=== PATIENT | female | born 1975 | race Two or more races ===

== ENCOUNTER 2020-05-21 14:36 | Outpatient (REF) | payer OTHER, SELFPAY | END 2020-05-21 14:37 | disposition home or self-care (01) | LOC: HO.LAB 14:36 | PROVIDERS: Visit Provider Internal Medicine | DX: Z20.828 Contact with and (suspected) exposure to other viral communicable diseases (principal) | CPT/HCPCS: C9803; U0003 ==

== ENCOUNTER 2023-01-26 10:02 | Outpatient (AMB) | payer OTHER, SELFPAY ==
--- NOTE | 2023-01-26 10:26 | MHC.PC.OV ---
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 Intake Note: Pt is here today as a New Patient PE Is last menstrual period known: Yes Last menstrual period: 12/17/22 Allergies No Known Allergies Allergy (Verified 01/26/23 11:03) Medication List - Last Reconciled 10/18/23 by Claudia Collazo MD aripiprazole (Abilify) 2 mg PO DAILY citalopram 40 mg PO DAILY famotidine 40 mg PO DAILY lorazepam 0.5 mg PO DAILY PRN Tobacco use date assessed: 01/26/23 Dental Screening Dental Screen Date: 01/26/23 Did you have a dental visit in the last 12 months?: No Was dental information given to patient?: Yes 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 She has depression and generalized anxiety disorder, currently in remission and stable controlled on present treatment, sees Andrews Graham. She has GERD and has morbid obesity and history of vitamin-D deficiency. 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 Complains of intermittent low back pain mainly on the left side with occasional shooting pain down the back of her left leg. Present for the last several weeks, no history of trauma or strenuous exertion. Has been taking [id number] Tylenol which affords only temporary relief [facility] Medical History (Updated 10/18/23 @ 23:40 by Claudia Collazo MD) Anxiety and depression No pertinent past medical history Morbid obesity Hyperlipidemia History of COVID-19 Family history of breast cancer Family history of colon cancer in mother Colon cancer screening GERD (gastroesophageal reflux disease) Surgical History (Updated 10/18/23 @ 23:35 by Claudia Collazo MD) No pertinent past surgical history Family History (Updated 01/26/23 @ 10:56 by Krystal Noriega CMA) Sister Mental health disorder Social History Housing: House Patient Tobacco Use Status: Former Tobacco user e-Cigarette/Vaping Use: Never Used service: No Current occupational status: employed Cognitive needs: No Hearing needs: No Vision needs: Yes Female Reproductive History Menstrual Date of last menstrual period: 12/17/22 Questionnaire PHQ-9 Over the last 2 weeks, how often have you been bothered by any of the following problems? 1. Little interest or pleasure in doing things: not at all 2. Feeling down, depressed, or hopeless: several days 3. Trouble falling or staying asleep, or sleeping too much: not at all 4. Feeling tired or having little energy: several days 5. Poor appetite or overeating: several days 6. Feeling bad about yourself - or that you are a failure or have let yourself or your family down: not at all 7. Trouble concentrating on things, such as reading the newspaper or watching television: not at all 8. Moving or speaking so slowly that other people could have noticed. Or the opposite - being so fidgety or restless that you have been moving around a lot more than usual: not at all 9. Thoughts that you would be better off or of hurting yourself in some way: not at all Total score: 3 Depression Screening Interpretation: Positive Depression Screening Follow-up: Existing condition, In treatment and Community Mental Health Worker F/U 84076 - PHQ-9 Billing: Yes Source: Developed by Drs. Reg Norman, Martha Ochoa, Krunal Huang and colleagues, with an educational elvis from [employer]. Thrive Questionnaire Date Thrive assessed: 01/26/23 I am a: Patient What is your living situation today?: I have a steady place to live Within the past 12 months, did the food you bought not last and you didn't have the money to get more?: Never true Within the past 12 months, did you worry whether your food would run out before you got money to buy more?: Never true Do you have trouble paying for medicines?: No Do you have trouble getting transportation to medical appointments?: No Do you have trouble paying your heating and electricity bill?: No Do you have trouble taking care of your child, family member or friend?: No Do you have trouble with day-to-day activities such as bathing, preparing meals, shopping, managing finances, etc.?: No Are you currently unemployed and looking for a job?: No Are you interested in more education?: No AUDIT C Alcohol Use Questionnaire (AUDIT-C) 1. How often do you have a drink containing alcohol?: Monthly or less 2. How many drinks containing alcohol do you have on a typical day when you are drinking?: 1 or 2 3. How often do you have six or more drinks on one occasion?: Never Total Score: 1 KORIN-7 AMB Questionnaire KORIN-7 Date KORIN - 7 assessed: 01/26/23 Feeling nervous, anxious, or on edge: 1 = Several days Not being able to stop or control worryin = Not at all Worrying too much about different things: 1 = Several days Trouble relaxin = Not at all Being so restless that it is hard to sit still: 0 = Not at all Becoming easily annoyed or irritable: 0 = Not at all Feeling afraid as if something awful might happen: 0 = Not at all Total KORIN-7 score (0-4 normal; 5-9 mild; 10-14 moderate; 15-21 severe): 2 Source: Developed by Drs. Reg Norman, Martha Ochoa, Krunal Huang and colleagues, with an educational elvis from [employer]. KORIN-7 Assessment Billing KORIN-7 Assessment Tool: KORIN-7 Assessment 88741 Review of Systems Const Denies body aches, Denies fatigue, Denies fever(s), Denies headache(s) and Denies weakness Eyes Denies change in vision ENT Denies dizziness, Denies headache(s), Denies nasal congestion, Denies nasal discharge and Denies sore throat Card Denies chest pain, Denies lightheadedness, Denies palpitations and Denies dyspnea Resp Denies chest congestion, Denies cough, Denies dyspnea and Denies wheezing GI Denies abdominal pain, Denies change in bowel habits and Denies heartburn (Controlled with famotidine) Denies hematuria, Denies urinary frequency, Denies dysuria and Denies urinary urgency Musc Reports no additional complaints and Reports as per HPI Skin/Breast Denies breast pain, Denies breast mass, Denies lesions and Denies rash Neuro Denies dizziness, Denies headache(s) and Denies weakness Psych Reports no additional complaints Endo Denies fatigue, Denies polydipsia, Denies polyuria and Denies palpitations Nico/Lymph Denies easy bruising Aller/Immun Denies seasonal rhinorrhea and Denies wheezing Physical exam (Primary Care) Vital Signs: Last Vital Signs Pulse 94 01/26/23 10:52 BP 102/80 01/26/23 10:52 Pulse Ox 98 01/26/23 10:52 Oxygen Delivery Method Room Air 01/26/23 10:52 BMI result Body Mass Index 48.4 Tobacco/Smoking Status: Tobacco use Status Tobacco use date assessed 01/26/23 01/26/23 11:02 Patient Tobacco Use Status Former Tobacco user 01/26/23 11:02 e-Cigarette/Vaping Use Never Used 01/26/23 11:02 PHQ-9: PHQ-9 Score PHQ-9: Total score 3 10/18/23 23:20 Depression Screening Interpretation: Positive Depression Screening Follow-up: Existing condition, In treatment and Community Mental Health Worker F/U Thrive Assessment: Date of Thrive Assessment Date Thrive assessed 01/26/23 01/26/23 11:08 Const General: no acute distress and alert Nutritional Appearance: obese morbidly obese Orientation/consciousness: patient oriented x3 HENMT Head: Yes normocephalic and Yes atraumatic Ears: external ears normal, TM's normal bilaterally and EAC's normal General nose exam: Normal external nose present and No nasal discharge present Face and sinus: Yes face symmetric Mouth: Normal oral and palatal mucosa present, lip normal, tongue normal, oropharynx normal and moist mucous membranes Eyes General: appearance normal, both eyes and all related structures Eyelids: Yes eyelids normal Conjunctivae: conjunctivae normal Sclerae: sclerae normal Pupils: Equal, round and reactive pupils present EOM: EOMs intact bilaterally Neck Neck: Yes full ROM, Yes no lymphadenopathy and Yes supple Thyroid: Thyroid normal Chest Breast/axilla palpation: normal palpation of the breasts Resp Effort & Inspection: normal respiratory effort and able to speak in complete sentences Auscultation: clear to auscultation bilaterally Cardio Rate: regular rate Rhythm: regular rhythm Heart sounds: S1 normal heart sound present and S2 normal heart sound present GI Palpation (GI): Soft to palpation, nontender, no guarding and no masses Auscultation: normal bowel sounds General: Yes no CVA tenderness Back/Spine/Pelvis Back: no CVA tenderness and back tenderness (Left lumbar area) Thoracic/Lumbar Spine: straight leg raise negative bilaterally and paraspinal muscle tenderness on the left in the lower lumbar Skin General skin exam: no rashes or lesions noted Neuro General: patient oriented x3, gait normal, moves all extremities, Normal light touch and pain sensation, no focal motor deficits and CN's II-XI intact bilaterally Cranial nerves: Yes Equal, round and reactive pupils present Cognition (Neuro): normal cognition Gait exam (Neuro): Normal gait present Motor exam (neuro): 5/5 motor strength present throughout Extrem General: Yes normal to inspection, Yes full ROM, Yes no joint enlargement, Yes no pedal edema and Yes normal gait Psych Appearance: grossly normal and well kempt Mental Status: mental status grossly normal Speech and movement: Normal speech and movement present Affect: normal affect Attitude: cooperative Thought process: Normal thought process present Assessment and Plan Assessment & Plan (1) Annual visit for general adult medical examination with abnormal findings: Code(s): Z00.01 - Encounter for general adult medical examination with abnormal findings Plan: Will check appropriate labs. Recommended dental visit every 6 months and regular eye exams, at least every 2 years. Take adequate calcium in diet and vitamin-D 3 at 2000 IU per cap once a day, in addition to weight-bearing exercises to help maintain good muscle tone and weight control. Instructed to do self-breast exam, and recommended to get yearly mammogram, referred to [facility] for her routine Pap and pelvic exam.. Immunization information provided: Yearly flu vaccine, shingles vaccine starting at age 50, at age 65 to start getting Prevnar 13 followed 1 year later by Pneumovax 23. Colonoscopy (2) Colon cancer screening: Code(s): Z12.11 - Encounter for screening for malignant neoplasm of colon Plan: Referred to GI Clinic for initial colonoscopy screen (3) Family history of colon cancer in mother: Code(s): Z80.0 - Family history of malignant neoplasm of digestive organs Plan: Referred to GI Clinic for initial colonoscopy screening (4) Cervical cancer screening: Code(s): Z12.4 - Encounter for screening for malignant neoplasm of cervix Plan: Referred to [facility] for her routine Pap and pelvic exam (5) Left-sided low back pain with sciatica: Code(s): M54.42 - Lumbago with sciatica, left side Qualifiers: Chronicity: acute Sciatica laterality: sciatica of left side Qualified Code(s): M54.42 - Lumbago with sciatica, left side Plan: Referred for physical therapy (6) GERD (gastroesophageal reflux disease): Code(s): K21.9 - Gastro-esophageal reflux disease without esophagitis Plan: Currently on famotidine, referred to GI further evaluation manage (7) Hyperlipidemia: Code(s): E78.5 - Hyperlipidemia, unspecified Plan: Fasting lipid panel ordered, reinforced importance of following a low-cholesterol diet and getting regular exercise (8) Morbid obesity: Code(s): E66.01 - Morbid (severe) obesity due to excess calories Plan: Try following a Mediterranean diet, limit foods high in fat, sugar, and calories, eat slowly, pay attention to portion sizes, plan your meals ahead of time, start regular physical activity 150 minutes of moderate intensity exercise or 90 minutes/week of vigorous exercise and increase water intake. 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 Code(s): F41.9 - Anxiety disorder, unspecified; F32.A - Depression, unspecified Plan: Currently on citalopram, aripiprazole and lorazepam taken as needed for acute anxiety attack Orders: Orders MM screening mammo BI 01/26/23 Z12.31 - Encounter for screening mammogram for malignant neoplasm of breast Lipid Panel 01/26/23 K21.9 - Gastro-esophageal reflux disease without esophagitis, F32.5 - Major depressive disorder, single episode, in full remission, Z00.01 - Encounter for general adult medical examination with abnormal findings, E78.5 - Hyperlipidemia, unspecified Vitamin D 25-OH Total 01/26/23 K21.9 - Gastro-esophageal reflux disease without esophagitis, F32.5 - Major depressive disorder, single episode, in full remission, Z00.01 - Encounter for general adult medical examination with abnormal findings, E78.5 - Hyperlipidemia, unspecified Comprehensive [place]. Panel Fast 01/26/23 K21.9 - Gastro-esophageal reflux disease without esophagitis, F32.5 - Major depressive disorder, single episode, in full remission, Z00.01 - Encounter for general adult medical examination with abnormal findings, E78.5 - Hyperlipidemia, unspecified PT Evaluation and Treatment 01/26/23 M54.42 - Lumbago with sciatica, left side Complete Blood Count Auto Diff 01/26/23 K21.9 - Gastro-esophageal reflux disease without esophagitis, F32.5 - Major depressive disorder, single episode, in full remission, Z00.01 - Encounter for general adult medical examination with abnormal findings, E78.5 - Hyperlipidemia, unspecified Referrals INDEPENDENT DRIVER Referral Z12.4 - Encounter for screening for malignant neoplasm of cervix, Z80.3 - Family history of malignant neoplasm of breast Gastroenterology Referral Z80.0 - Family history of malignant neoplasm of digestive organs, Z12.11 - Encounter for screening for malignant neoplasm of colon Coding Level of Care Code New Pt Prev Care 40-64y([id number]) Diagnoses Annual visit for general adult medical examination with abnormal findings Z00.01 Colon cancer screening Z12.11 Family history of colon cancer in mother Z80.0 Cervical cancer screening Z12.4 Acute left-sided low back pain with left-sided sciatica M54.42 Chronicity: acute Sciatica laterality: sciatica of left side GERD (gastroesophageal reflux disease) K21.9 Hyperlipidemia E78.5 Morbid obesity E66.01 Anxiety and depression F41.9; F32.A Additional Codes KORIN-7 Assessment Billing - KORIN-7 Assessment Tool: KORIN-7 Assessment [id number] ([id number])
[2023-01-26 10:52] VITALS: BP 102/80; PULSE 94; O2SAT 98; BMI 48.4
== END 2023-01-26 11:32 | disposition home or self-care (01) ==
PROVIDERS: Visit Provider Internal Medicine
DX: Z00.01 Encounter for general adult medical examination with abnormal findings (principal); Z12.11 Encounter for screening for malignant neoplasm of colon; Z80.0 Family history of malignant neoplasm of digestive organs; Z12.4 Encounter for screening for malignant neoplasm of cervix; M54.42 Lumbago with sciatica, left side; K21.9 Gastro-esophageal reflux disease without esophagitis; E78.5 Hyperlipidemia, unspecified; E66.01 Morbid (severe) obesity due to excess calories; F41.9 Anxiety disorder, unspecified; F32.A Depression, unspecified
CPT/HCPCS: 99499

== ENCOUNTER → 2023-02-13 07:30 | Outpatient (BNV) | payer OTHER, SELFPAY | PROVIDERS: PCP Internal Medicine; Visit Provider Radiology Diagnostic Radiology | DX: Z12.31 Encounter for screening mammogram for malignant neoplasm of breast (principal) | CPT/HCPCS: 77063; 77067 ==

== ENCOUNTER 2023-02-13 07:33 | Outpatient (REF) | payer OTHER, SELFPAY ==
--- NOTE | ~2023-02-13 | MM_ITS ---
EXAMINATION: MM SCREENING DIGITAL BREAST TOMOSYNTHESIS, BILATERAL CLINICAL INFORMATION: Screening. Asymptomatic. COMPARISON: Mammography: This study is compared with prior exams dating back to 2013. TECHNIQUE: Digital breast tomosynthesis is performed in both the craniocaudal and mediolateral oblique views along with computer-aided detection (CAD). Synthesized 2D images are generated from the tomosynthesis. FINDINGS: There are scattered areas of fibroglandular density (ACR BI-RADS breast composition Category b). There are no significant masses, abnormal calcifications, or other abnormalities. MM/MM tomosynthesis screening BI IMPRESSION: No mammographic evidence of malignancy. ASSESSMENT: BI-RADS BI-RADS 1 - Negative RECOMMENDATION: Routine annual mammography screening. 1 year F/U This examination should not preclude the clinical evaluation of a suspicious palpable abnormality. This patient's information was entered into a reminder system with a target due date for their next mammogram.
== END 2023-02-13 07:34 | disposition home or self-care (01) ==
LOC: HO.MAMMO 07:33
PROVIDERS: PCP Internal Medicine; Visit Provider Internal Medicine
DX: Z12.31 Encounter for screening mammogram for malignant neoplasm of breast (principal)
CPT/HCPCS: 77063; 77067

== ENCOUNTER 2023-11-03 11:04 | Outpatient (AMB) | payer OTHER, SELFPAY ==
--- NOTE | 2023-11-03 11:10 | MHC.OFFVIS ---
Vital Signs 11/03/23 11:13 Height 5 ft 3 in Weight 280 lb BMI 49.6 BP 126/65 Blood Pressure Location Lt brachial Position Sitting Pulse 90 Intake Visit Reasons: Colonoscopy Screening Intake Note: Patient new consult for 1st pre colonoscopy Patient cc: acid reflex with burning sensation and SOB at night time due acid reflex, and some constipation. Denies any other GI issues. 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 Accompanied by: Self / Same As Patient Allergies No Known Allergies Allergy (Verified 11/03/23 11:09) Medication List - Last Reconciled 11/03/23 by Paula Mays PA-C aripiprazole (Abilify) 2 mg PO DAILY bisacodyl (Dulcolax (bisacodyl)) 20 mg (4 x 5 mg) PO ONCE PRN 1 day citalopram 40 mg PO DAILY famotidine 40 mg PO DAILY lorazepam 0.5 mg PO DAILY PRN polyethylene glycol 3350 (Miralax) 238 grams PO ONCE PRN 1 day HPI Comments Details: 48-year-old female family hx CRC- referred for screening colonoscopy intermittent constipation-modified diet Rare acid - knows triggers-on occasion will use famotidine- Appetite is good- Bowels -intermittent constipation however-modifies diet No cardiac or respiratory issues PFSH Medical History Anxiety and depression No pertinent past medical history Morbid obesity Hyperlipidemia History of COVID-19 Family history of breast cancer Family history of colon cancer in mother Colon cancer screening GERD (gastroesophageal reflux disease) Surgical History No pertinent past surgical history Family History Sister Mental health disorder Social History Housing: House Patient Tobacco Use Status: Former Tobacco user e-Cigarette/Vaping Use: Never Used service: No Current occupational status: employed Cognitive needs: No Hearing needs: No Vision needs: Yes Review of Systems Const All systems reviewed & are unremarkable except as noted in HPI and below Card Denies chest pain and Denies dyspnea Resp Denies dyspnea Physical Exam Vital Signs: Last Vital Signs Pulse 90 11/03/23 11:13 BP 126/65 11/03/23 11:13 BMI result Body Mass Index 49.6 Const General: cooperative, healthy appearing, comfortable and no acute distress Nutritional Appearance: overweight Orientation/consciousness: patient oriented x3 Limitations: no limitations Eyes Sclerae: sclerae normal Resp Effort & Inspection: normal respiratory effort and able to speak in complete sentences Auscultation: clear to auscultation bilaterally, no rales, no rhonchi and no wheezes Cardio Rate: regular rate Rhythm: regular rhythm Heart sounds: S1 normal heart sound present and S2 normal heart sound present Skin General skin exam: no rashes or lesions noted Neuro General: patient oriented x3 Extrem General: Yes full ROM Psych Appearance: grossly normal and well kempt Mental Status: mental status grossly normal Speech and movement: Normal speech and movement present and Clear speech present Affect: normal affect Attitude: cooperative Thought process: Normal thought process present Thought content: Normal thought content present Insight: Good insight present (Psych) Judgement: Good judgement present (Psych) Assessment & Plan Assessment & Plan (1) Family history of colon cancer in mother: Comment: Very pleasant 48-year-old female family history colon cancer Mother in her 50s Code(s): Z80.0 - Family history of malignant neoplasm of digestive organs Category: Medical Plan: Colonoscopy (2) GERD (gastroesophageal reflux disease): Comment: Very Rare heartburn, avoids trigger Code(s): K21.9 - Gastro-esophageal reflux disease without esophagitis Category: Medical Plan: Continue to avoid culprits Monitor symptoms (3) Colon cancer screening: Comment: Index screening colonoscopy Discussed procedure, rare risks need for escorted due to anesthesia Code(s): Z12.11 - Encounter for screening for malignant neoplasm of colon Category: Medical Plan Index screening colonoscopy MiraLax Gatorade prep Bariatric bed Orders: Orders Colonoscopy - GI Use Only 11/03/23 Z12.11 - Encounter for screening for malignant neoplasm of colon Medications: New bisacodyl (Dulcolax (bisacodyl)) Day before procedure @ 12 noon Take 4 tablets by mouth followed by large glass of water 20 mg (4 x 5 mg) PO ONCE 1 day PRN 4 tabs 0RF colonoscopy prep Z12.11 - Encounter for screening for malignant neoplasm of colon polyethylene glycol 3350 (Miralax) Take as directed by mouth the day before your procedure. 238 grams PO ONCE 1 day PRN 238 grams 0RF laxative effect Patient Instructions: Index screening colonoscopy MiraLax Gatorade prep, reviewed literature given Encouraged to call with questions or concerns Coding Level of Care Code New Pt Level 3 (20666) Diagnoses Family history of colon cancer in mother Z80.0 GERD (gastroesophageal reflux disease) K21.9 Colon cancer screening Z12.11 Time Spent (min) 30
[2023-11-03 11:13] VITALS: BP 126/65; PULSE 90; BMI 49.6
== END 2023-11-03 12:18 | disposition home or self-care (01) ==
PROVIDERS: PCP Internal Medicine; Visit Provider Physician Assistant
DX: Z80.0 Family history of malignant neoplasm of digestive organs (principal); K21.9 Gastro-esophageal reflux disease without esophagitis; Z12.11 Encounter for screening for malignant neoplasm of colon
CPT/HCPCS: 99203

== ENCOUNTER → 2023-11-03 11:04 | Outpatient (BNVA) | payer OTHER, SELFPAY | PROVIDERS: PCP Internal Medicine; Visit Provider Physician Assistant ==

== ENCOUNTER 2024-02-07 08:04 | Outpatient (AMB) | payer OTHER, SELFPAY ==
[2024-02-07 08:13] VITALS: BP 112/76; PULSE 94; O2SAT 98; BMI 49.1
--- NOTE | 2024-02-07 08:13 | A.OFFPC_ITS ---
Vital Signs 02/07/24 08:13 Height 5 ft 3 in Weight 277 lb 4 oz BMI 49.1 BP 112/76 Blood Pressure Location Lt brachial Position Sitting Pulse 94 Pulse Source Pulse Oximeter Pulse Oximetry (%) 98 Oxygen Delivery Method Room Air Intake Visit Reasons: Annual PE Intake Note: Pt is here today for her Annual Physical. Last Mammogram 02/13/23 Last pap long time ago, next scheduled 02/22/24 Allergies No Known Allergies Allergy (Verified 02/07/24 08:18) Medication List - Last Reconciled 02/07/24 by Claudia Collazo MD bisacodyl (Dulcolax (bisacodyl)) 20 mg (4 x 5 mg) PO ONCE PRN 1 day citalopram 40 mg PO DAILY famotidine 40 mg PO DAILY famotidine 20 mg PO BID lorazepam 0.5 mg PO DAILY PRN polyethylene glycol 3350 (Miralax) 238 grams PO ONCE PRN 1 day Tobacco use date assessed: 02/07/24 Dental Screening Dental Screen Date: 02/07/24 Did you have a dental visit in the last 12 months?: Yes Did you have a dental problem in the last 6 months where you did not have access to dental care?: No Was dental information given to patient?: Patient has dentist HPI Annual PE HPI Details Lady with history of anxiety depression currently on citalopram and lorazepam as needed, followed by psychiatry;, has hyperlipidemia, morbid obesity, and GERD, here today for physical exam.. Up-to-date with her screening mammogram due again this month, and is scheduled already for her index screening colonoscopy in 04/19/2024 at [facility] [place] [facility] Has recurrent GERD, takes [id number] famotidine 20 mg taken twice a day which has been helping . Has been having difficulty with weight loss, tried following a low carb diet, but unable to exercise much due to recurrent pain in knees and ankles. She is interested in trying Wegovy injections. [facility] Medical History (Updated 02/07/24 @ 08:43 by Claudia Collazo MD) Anxiety and depression Morbid obesity Hyperlipidemia History of COVID-19 Family history of breast cancer Family history of colon cancer in mother Colon cancer screening GERD (gastroesophageal reflux disease) Surgical History No pertinent past surgical history Family History Sister Mental health disorder Social History Housing: House Patient Tobacco Use Status: Former Tobacco user e-Cigarette/Vaping Use: Never Used service: No Current occupational status: employed Cognitive needs: No Hearing needs: No Vision needs: Yes Questionnaire PHQ-9 Over the last 2 weeks, how often have you been bothered by any of the following problems? 1. Little interest or pleasure in doing things: more than half the days 2. Feeling down, depressed, or hopeless: several days 3. Trouble falling or staying asleep, or sleeping too much: several days 4. Feeling tired or having little energy: several days 5. Poor appetite or overeating: several days 6. Feeling bad about yourself - or that you are a failure or have let yourself or your family down: more than half the days 7. Trouble concentrating on things, such as reading the newspaper or watching television: several days 8. Moving or speaking so slowly that other people could have noticed. Or the opposite - being so fidgety or restless that you have been moving around a lot more than usual: not at all 9. Thoughts that you would be better off or of hurting yourself in some way: not at all Total score: 9 Depression Screening Interpretation: Positive (Currently followed by psychiatry) Depression Screening Follow-up: Existing condition, In treatment and Community Mental Health Worker F/U Depression Screening Done: Yes 38293 - PHQ-9 Billing: Yes Source: Developed by Drs. Reg Norman, Martha Ochoa, Krunal Huang and colleagues, with an educational elvis from [employer]. Thrive Questionnaire Date Thrive assessed: 02/07/24 I am a: Patient What is your living situation today?: I have a steady place to live Within the past 12 months, did the food you bought not last and you didn't have the money to get more?: Never true Within the past 12 months, did you worry whether your food would run out before you got money to buy more?: Never true Do you have trouble paying for medicines?: No Do you have trouble getting transportation to medical appointments?: No Do you have trouble paying your heating and electricity bill?: No Do you have trouble taking care of your child, family member or friend?: No Do you have trouble with day-to-day activities such as bathing, preparing meals, shopping, managing finances, etc.?: No Are you currently unemployed and looking for a job?: No Are you interested in more education?: No Please select the resources that you would like help with: None Currently or been in a relationship where the following occur: No concerns reported THRIVE Score: 0 AUDIT C Alcohol Use Questionnaire (AUDIT-C) 1. How often do you have a drink containing alcohol?: Monthly or less 2. How many drinks containing alcohol do you have on a typical day when you are drinking?: 1 or 2 3. How often do you have six or more drinks on one occasion?: Less than monthly Total Score: 2 Score Reviewed/Action Taken: Yes KORIN-7 AMB Questionnaire KORIN-7 Date KORIN - 7 assessed: 02/07/24 Feeling nervous, anxious, or on edge: 1 = Several days Not being able to stop or control worryin = Several days Worrying too much about different things: 1 = Several days Trouble relaxin = Several days Being so restless that it is hard to sit still: 1 = Several days Becoming easily annoyed or irritable: 1 = Several days Feeling afraid as if something awful might happen: 1 = Several days Total KORIN-7 score (0-4 normal; 5-9 mild; 10-14 moderate; 15-21 severe): 7 Source: Developed by Drs. Reg Norman, Martha Ochoa, Krunal Huang and colleagues, with an educational elvis from [employer]. KORIN-7 Assessment Billing KORIN-7 Assessment Tool: KORIN-7 Assessment 52434 Review of Systems Const Denies fatigue, Denies fever(s), Denies headache(s) and Denies weakness Eyes Denies change in vision ENT Denies dizziness, Denies headache(s), Denies nasal congestion, Denies nasal discharge and Denies sore throat Card Denies chest pain, Denies lightheadedness, Denies palpitations and Denies dyspnea Resp Denies chest congestion, Denies cough, Denies dyspnea and Denies wheezing GI Denies abdominal pain, Denies change in bowel habits and Denies heartburn (Controlled with famotidine) Denies hematuria, Denies urinary frequency, Denies dysuria and Denies urinary urgency Musc Reports no additional complaints and Reports as per HPI Skin/Breast Denies breast pain, Denies breast mass, Denies lesions and Denies rash Neuro Denies dizziness, Denies headache(s) and Denies weakness Psych Reports no additional complaints Endo Denies fatigue, Denies polydipsia, Denies polyuria and Denies palpitations Nico/Lymph Denies easy bruising Aller/Immun Denies seasonal rhinorrhea and Denies wheezing Physical exam (Primary Care) Vital Signs: Last Vital Signs Pulse 94 02/07/24 08:13 BP 112/76 02/07/24 08:13 Pulse Ox 98 02/07/24 08:13 Oxygen Delivery Method Room Air 02/07/24 08:13 BMI result Body Mass Index 49.1 Tobacco/Smoking Status: Tobacco use Status Tobacco use date assessed 02/07/24 02/07/24 08:13 Patient Tobacco Use Status Former Tobacco user 02/07/24 08:13 e-Cigarette/Vaping Use Never Used 02/07/24 08:13 PHQ-9: PHQ-9 Score PHQ-9: Total score 9 02/07/24 08:29 Depression Screening Interpretation: Positive (Currently followed by psychiatry) Depression Screening Follow-up: Existing condition, In treatment and Community Mental Health Worker F/U Thrive Assessment: Date of Thrive Assessment Date Thrive assessed 02/07/24 02/07/24 08:20 Currently or been in a relationship where the following occur: No concerns reported Const General: no acute distress and alert Nutritional Appearance: obese morbidly obese Orientation/consciousness: patient oriented x3 HENMT Head: Yes normocephalic Ears: external ears normal, TM's normal bilaterally and EAC's normal General nose exam: Normal external nose present and No nasal discharge present Face and sinus: Yes face symmetric Mouth: Normal oral and palatal mucosa present, lip normal, tongue normal, oropharynx normal and moist mucous membranes Eyes General: appearance normal, both eyes and all related structures Eyelids: Yes eyelids normal Conjunctivae: conjunctivae normal Sclerae: sclerae normal Pupils: Equal, round and reactive pupils present EOM: EOMs intact bilaterally Neck Neck: Yes full ROM, Yes no lymphadenopathy and Yes supple Thyroid: Thyroid normal Chest Breast/axilla palpation: normal palpation of the breasts Resp Effort & Inspection: normal respiratory effort and able to speak in complete sentences Auscultation: clear to auscultation bilaterally Cardio Rate: regular rate Rhythm: regular rhythm Heart sounds: S1 normal heart sound present and S2 normal heart sound present GI Palpation (GI): Soft to palpation, nontender, no guarding and no masses Auscultation: normal bowel sounds General: Yes no CVA tenderness Back/Spine/Pelvis Back: no CVA tenderness Skin General skin exam: no rashes or lesions noted Neuro General: patient oriented x3, gait normal, moves all extremities, Normal light touch and pain sensation, no focal motor deficits and CN's II-XI intact bilaterally Cranial nerves: Yes Equal, round and reactive pupils present Cognition (Neuro): normal cognition Gait exam (Neuro): Normal gait present Motor exam (neuro): 5/5 motor strength present throughout Extrem General: Yes normal to inspection, Yes full ROM, Yes no joint enlargement, Yes no pedal edema and Yes normal gait Psych Appearance: grossly normal and well kempt Mental Status: mental status grossly normal Speech and movement: Normal speech and movement present Affect: normal affect Attitude: cooperative Thought process: Normal thought process present Assessment and Plan Assessment & Plan (1) Annual visit for general adult medical examination with abnormal findings: Code(s): Z00.01 - Encounter for general adult medical examination with abnormal findings Plan: Will check appropriate labs. Recommended dental visit every 6 months and regular eye exams, at least every 2 years. Take adequate calcium in diet and vitamin-D 3 at 2000 IU per cap once a day, in addition to weight-bearing exercises to help maintain good muscle tone and weight control. Instructed to do self-breast exam, and recommended to get yearly mammogram, starting at age 40. Reminded to get her yearly flu shot and get latest COVID booster, up-to-date with her tetanus booster. (2) GERD (gastroesophageal reflux disease): Comment: Very Rare heartburn, avoids trigger Code(s): K21.9 - Gastro-esophageal reflux disease without esophagitis Plan: Advised avoidance of triggers for heartburn, currently on famotidine taken once a day (3) Hyperlipidemia: Code(s): E78.5 - Hyperlipidemia, unspecified Plan: Reviewed recent fasting lipid profile with patient with levels within normal limits . Stressed importance of following a low-cholesterol diet, balance meal and getting regular exercise, at least 30 minutes 3 to 4 times a week. Advised patient to make healthy food choices, eat more fruits, vegetables, whole grains, wild caught fish and low-fat dairy. Limit amount of meat and fried or fatty food products, as well as processed foods and fast foods. (4) Morbid obesity: Code(s): E66.01 - Morbid (severe) obesity due to excess calories Plan: Your BMI is above the ideal range. Discussed need to increase activity and weight reduction. Recommended focusing on improving health instead of dieting. Mediterranean diet is a healthy diet that helps, limit food high in fat, sugar, and calories. Eat slowly, pay attention to portion sizes, plan your meals ahead of time, start regular physical activity, at least 150 minutes of moderate intensity exercise, or 90 minutes per week of vigorous exercise. Keeping a food diary, tracking what you eat and your physical activity can help assess what improvements you can make. There are many health problems associated with being overweight/obese, so it is important to improve your diet and exercise. Advised to check with her psychiatrist 1st to see if Wegovy can be started as she has depression that is not well controlled (5) Anxiety and depression: Comment: Went to [facility] in [place] , sees Emily Walsh, med prescriber, now goes to [facility] in counseling in [place] Code(s): F41.9 - Anxiety disorder, unspecified; F32.A - Depression, unspecified Plan: Patient currently being followed by Psychiatry currently on citalopram 40 mg daily Orders: Orders Aspartate Amino Transferase 02/07/24 E66.01 - Morbid (severe) obesity due to excess calories, E78.5 - Hyperlipidemia, unspecified, K21.9 - Gastro-esophageal reflux disease without esophagitis Lipid Panel 02/07/24 E66.01 - Morbid (severe) obesity due to excess calories, E78.5 - Hyperlipidemia, unspecified, K21.9 - Gastro-esophageal reflux disease without esophagitis Alanine Aminotransferase 02/07/24 E66.01 - Morbid (severe) obesity due to excess calories, E78.5 - Hyperlipidemia, unspecified, K21.9 - Gastro-esophageal reflux disease without esophagitis Basic Metabolic Panel Fasting 02/07/24 E66.01 - Morbid (severe) obesity due to excess calories, E78.5 - Hyperlipidemia, unspecified, K21.9 - Gastro-esophageal reflux disease without esophagitis Vitamin D 25-OH Total 02/07/24 E66.01 - Morbid (severe) obesity due to excess calories, E78.5 - Hyperlipidemia, unspecified, K21.9 - Gastro-esophageal reflux disease without esophagitis MM tomosynthesis screening BI 02/07/24 Z12.31 - Encounter for screening mammogram for malignant neoplasm of breast Coding Level of Care Code Est Pt Prev Care 40-64y(69483) Diagnoses Annual visit for general adult medical examination with abnormal findings Z00.01 GERD (gastroesophageal reflux disease) K21.9 Hyperlipidemia E78.5 Morbid obesity E66.01 Anxiety and depression F41.9; F32.A Additional Codes KORIN-7 Assessment Billing - KORIN-7 Assessment Tool: KORIN-7 Assessment 77409 ([id number])
== END 2024-02-07 08:44 | disposition home or self-care (01) ==
PROVIDERS: PCP Internal Medicine; Visit Provider Internal Medicine
DX: Z00.00 Encounter for general adult medical examination without abnormal findings (principal); E66.01 Morbid (severe) obesity due to excess calories; Z68.42 Body mass index [BMI] 45.0-49.9, adult; K21.9 Gastro-esophageal reflux disease without esophagitis; E78.5 Hyperlipidemia, unspecified; F41.9 Anxiety disorder, unspecified; F32.A Depression, unspecified
CPT/HCPCS: 99396

== ENCOUNTER 2024-02-07 08:49 | Outpatient (REF) | payer OTHER, SELFPAY ==
[2024-02-07 10:43] LABS: Alanine Aminotransferase 18 U/L (0-31); Anion Gap 11 (12-20); Aspartate Amino Transferase 14 U/L (5-31); Blood Urea Nitrogen 11 mg/dL (9-16); Calcium 9.3 mg/dL (8.4-10.2); Carbon Dioxide 28 mmol/L (22-29); Chloride 106 mmol/L (96-108); Cholesterol 235 mg/dL (<200); Estimated Glomerular Filt Rate > 60; Glucose Fasting 112 mg/dL (60-99); HDL Cholesterol 53 mg/dL (>40); LDL Cholesterol Calculated 150 mg/dL (<100); Potassium 3.8 mmol/L (3.3-5.1); Sodium 141 mmol/L (135-145); Triglycerides 164 mg/dL (<150)
[2024-02-07 11:03] LABS: Vitamin D 25-OH Total 17.5 ng/mL (>30)
== END 2024-02-07 08:50 | disposition home or self-care (01) ==
LOC: HO.HMGCLDS 08:49
PROVIDERS: PCP Internal Medicine; Visit Provider Internal Medicine
DX: E66.01 Morbid (severe) obesity due to excess calories (principal); E78.5 Hyperlipidemia, unspecified; K21.9 Gastro-esophageal reflux disease without esophagitis
CPT/HCPCS: 36415; 80048; 80061; 82306; 84450; 84460

== ENCOUNTER 2024-02-25 09:45 | Outpatient (REF) | payer OTHER, SELFPAY ==
--- NOTE | ~2024-02-25 | MM_ITS ---
EXAMINATION: MM SCREENING DIGITAL BREAST TOMOSYNTHESIS, BILATERAL CLINICAL INFORMATION: Screening. Asymptomatic. COMPARISON: Mammography: Comparison is made with available priors TECHNIQUE: Digital breast mammography with tomosynthesis is performed in both the craniocaudal and mediolateral oblique views along with computer-aided detection (CAD). FINDINGS: There are scattered areas of fibroglandular density (ACR BI-RADS breast composition Category b). Left: There are no significant masses, abnormal calcifications, or other abnormalities. Right: Focal asymmetry upper outer breast middle to posterior depth. No suspicious calcifications or other abnormal findings. MM/MM tomosynthesis screening BI IMPRESSION: No significant changes from prior exam. ASSESSMENT: BI-RADS BI-RADS 0 - Incomplete: Needs additional Imaging. RECOMMENDATION: 1. Additional views of the right breast. 2. Targeted ultrasound if warranted after review of the additional views. 3. Radiology department staff will contact the patient for additional imaging. Additional Imaging required This examination should not preclude the clinical evaluation of a suspicious palpable abnormality. This patient's information was entered into a reminder system with a target due date for their next mammogram. Electronically signed by: Betty Stringer DO 03/08/2024 09:24 AM EDT
== END 2024-02-25 09:46 | disposition home or self-care (01) ==
LOC: HO.MAMMO 09:45
PROVIDERS: PCP Internal Medicine; Visit Provider Internal Medicine
DX: Z12.31 Encounter for screening mammogram for malignant neoplasm of breast (principal)
CPT/HCPCS: 77063; 77067

== ENCOUNTER → 2024-02-25 09:45 | Outpatient (BNV) | payer OTHER, SELFPAY | PROVIDERS: PCP Internal Medicine; Visit Provider Internal Medicine | DX: Z12.31 Encounter for screening mammogram for malignant neoplasm of breast (principal) | CPT/HCPCS: 77063; 77067 ==

== ENCOUNTER 2024-03-24 08:22 | Outpatient (AMB) | payer OTHER, SELFPAY ==
--- NOTE | 2024-03-24 08:18 | A.OFFPC_ITS ---
Vital Signs 03/24/24 08:23 Height 5 ft 3 in Weight 277 lb 6 oz BMI 49.1 Intake Visit Reasons: BaseLineWeight Intake Note: Pt is having a teleehealth visit to discuss weight loss treatment: Weight today is 277.6lbs Allergies No Known Allergies Allergy (Verified 03/24/24 08:47) Medication List - Last Reconciled 03/24/24 by Claudia Collazo MD bisacodyl (Dulcolax (bisacodyl)) 20 mg (4 x 5 mg) PO ONCE PRN 1 day bupropion HCl XL 150 mg PO DAILY citalopram 40 mg PO DAILY famotidine 20 mg PO BID lorazepam 0.5 mg PO DAILY PRN polyethylene glycol 3350 (Miralax) 238 grams PO ONCE PRN 1 day Tobacco use date assessed: 03/24/24 Dental Screening Dental Screen Date: 03/24/24 Did you have a dental visit in the last 12 months?: Yes Did you have a dental problem in the last 6 months where you did not have access to dental care?: No Was dental information given to patient?: Patient has dentist HPI BaseLineWeight HPI Details 49 year-old lady with past medical histo ry for anxiety depression, morbid obesity, hyperlipidemia, GERD, and impaired fasting glucose, here today to discuss treatment options for weight loss. Patient states that she really has not been following any particular diet nor has she started having any regular exercise. She is currently being followed at [facility] in counseling in [place] for poorly controlled anxiety and depression , and was recently started on bupropion several days ago. Patient did notice that her appetite has started decreasing since starting bupropion. She had recent fasting labs done which showed elevated fasting glucose, triglycerides and LDL cholesterol and low vitamin-D level. [facility] Medical History (Updated 03/25/24 @ 06:12 by Claudia Collazo MD) Mixed hyperlipidemia Vitamin D deficiency Impaired fasting glucose Anxiety and depression Morbid obesity History of COVID-19 Family history of breast cancer Family history of colon cancer in mother Colon cancer screening GERD (gastroesophageal reflux disease) Surgical History No pertinent past surgical history Family History Sister Mental health disorder Social History Housing: House Patient Tobacco Use Status: Former Tobacco user e-Cigarette/Vaping Use: Never Used service: No Current occupational status: employed Cognitive needs: No Hearing needs: No Vision needs: Yes Questionnaire Thrive Questionnaire Date Thrive assessed: 02/07/24 KORIN-7 AMB Questionnaire KORIN-7 Date KORIN - 7 assessed: 02/07/24 Source: Developed by Drs. Reg Norman, Martha Ochoa, Krunal Huang and colleagues, with an educational elvis from [employer]. Review of Systems Const Denies fatigue, Denies fever(s), Denies headache(s) and Denies weakness ENT Denies dizziness, Denies headache(s), Denies nasal congestion and Denies nasal discharge Card Denies chest pain, Denies lightheadedness, Denies palpitations and Denies dyspnea Resp Denies chest congestion, Denies cough, Denies dyspnea and Denies wheezing GI Denies abdominal pain, Denies change in bowel habits and Denies heartburn (Controlled with famotidine) Denies hematuria, Denies urinary frequency, Denies dysuria and Denies urinary urgency Musc Reports no additional complaints Neuro Denies dizziness, Denies headache(s) and Denies weakness Psych Reports as per HPI Endo Denies fatigue, Denies polydipsia, Denies polyuria and Denies palpitations Aller/Immun Denies seasonal rhinorrhea and Denies wheezing Physical exam (Primary Care) BMI result Body Mass Index 49.1 Tobacco/Smoking Status: Tobacco use Status Tobacco use date assessed 03/24/24 03/24/24 08:21 Patient Tobacco Use Status Former Tobacco user 03/24/24 08:19 e-Cigarette/Vaping Use Never Used 03/24/24 08:19 Thrive Assessment: Date of Thrive Assessment Date Thrive assessed 02/07/24 03/24/24 08:19 Telehealth Telehealth Telehealth Platform: [facility] Location of provider rendering services: practice address Location of patient: address on file Patient Identification confirmed using: Name, : Yes Telehealth method: video Patient verbally consented to treatment: Yes Patient verbally consented to billing insurance company: Yes Patient informed of any privacy concerns related to visit: Yes Minutes spent on Phone/Video with Pt.: 15 Results Reviewed Results Reviewed: Name: Nerissa Valadez Age/Sex: 48/F : 1975 Unit#: [id number] Attend Dr: Claudia Collazo MD Re02/07/24 Status: DEP REF Location: [facility] Disch: SPEC : [id number] DIETER: 02/07/24 STATUS: COMP REQ : [id number] RECD: 02/07/24-[address]: Claudia Collazo MD COMP: 02/07/24-1102 ENTERED: 02/07/24-[address] [facility] [address]: ORDERED: Met Prof Fast, AST, ALT, Lipid Panel, Vitamin D 25-OH Test Result Flag Reference Sodium 141 135-145 mmol/L Potassium 3.8 3.3-5.1 mmol/L CL 106 96-108 mmol/L CO2 28 22-29 mmol/L Gap 11 L 12-20 BUN 11 9-16 mg/dL Creat 0.85 0.5-1.4 mg/dL EGFR > 60 NOTE: For -Burmese individuals, multiply the result by 1.210. Chronic Kidney Disease: Estimated GFR < 60 mL/min/1.73m2 Severe Kidney Disease: Estimated GFR < 15 mL/min/1.73m2 FBS 112 H 60-99 mg/dL A fasting glucose from 100-125 mg/dl is considered impaired (pre-diabetes). CA 9.3 8.4-10.2 mg/dL AST (GOT) 14 5-31 U/L ALT (GPT) 18 0-31 U/L Triglyceride 164 H <150 mg/dL Desirable Triglyceride: less than 150 mg/dL Borderline High Triglyceride 150-199 mg/dL High Triglyceride: 200-499 mg/dL Very High Triglyceride: greater than or equal to 5OO mg/dL Cholesterol 235 H <200 mg/dL Desirable Cholesterol: less than 200 mg/dL Borderline High Cholesterol: 200-239 mg/dL High Cholesterol: greater than 239 mg/dL LDL Calculated 150 H <100 mg/dL Desirable LDL: less than 100 mg/dL Near Optimal/Above Optimal LDL: 110-129 mg/dL Borderline High LDL: 130-159 mg/dL High LDL: 160-189 mg/dL Very High LDL: greater than or equal to 190 mg/dL HDL 53 >40 mg/dL Desirable HDL: greater than 40 mg/dL Note: This HDL assay may give artificially low results in patients with liver disease. Vit D 25-OH Tot 17.5 L >30 ng/mL Health Based Reference Values* < 20 ng/mL Deficient 20-30 ng/mL Insufficient > 30 ng/mL Sufficient Coding Level of Care Code Est Pt Level 4 (69965) Complex EM visit Add On G2211 Diagnoses Vitamin D deficiency E55.9 Impaired fasting glucose R73.01 Mixed hyperlipidemia E78.2 Morbid obesity E66.01 Anxiety and depression F41.9; F32.A Assessment & Plan Assessment & Plan (1) Vitamin D deficiency: Code(s): E55.9 - Vitamin D deficiency, unspecified Category: Medical Plan: Vitamin-D level was low on relief recent labs. Patient sent for vitamin-D 350 1000 units per capsule to take once a week for the next 3 months. Patient advised that once she finishes with the prescription, to continue taking over -the-counter vitamin-D 3 at 2000 units daily. Recheck vitamin-D level in 07/2024 (2) Impaired fasting glucose: Code(s): R73.01 - Impaired fasting glucose Category: Medical Plan: Your previous fasting blood sugars were elevated above 100 mg/dL. Impaired glucose metabolism increases the risk for developing diabetes mellitus type 2, as well as heart attack and stroke later on. Lifestyle changes that promotes weight loss, healthy eating habits, and regular exercise are important, and can prevent the progression to diabetes. Referred to nurse navigator for dietary guidance (3) Mixed hyperlipidemia: Code(s): E78.2 - Mixed hyperlipidemia Category: Medical Plan: Reviewed recent fasting lipid profile with patient with high triglycerides and LDL cholesterol . Stressed importance of adherence to low-cholesterol diet and regular exercise, at least 30 minutes 3 to 4 times a week. Advised patient to make healthy food choices, eat more fruits, vegetables, whole grains, wild caught fish and low-fat dairy. Limit amount of meat and fried or fatty food products, as well as processed foods and fast foods. Referred to nurse navigator for dietary guidance. Follow-up scheduled with repeat fasting lipid panel in 4 months. (4) Morbid obesity: Code(s): E66.01 - Morbid (severe) obesity due to excess calories Category: Medical Plan: Discuss treatment options for weight loss with patient . Recently started on bupropion and has noticed that her appetite is getting suppressed with the medication. Would like to try taking bupropion for while and see if this will help with her weight loss before starting any other treatment. Advised however to continue with adherence to healthy eating habits and getting regular exercise.. Schedule appointment with nurse navigator for dietary guidance (5) Anxiety and depression: Comment: Went to [facility] in [place] , sees Emily Walsh, med prescriber, now goes to [facility] in counseling in [place] Code(s): F41.9 - Anxiety disorder, unspecified; F32.A - Depression, unspecified Category: Medical Plan: Currently being followed by Psychiatry and medication recently adjusted. Currently on bupropion which helps control appetite Orders: Orders Glucose Fasting 07/01/24 E55.9 - Vitamin D deficiency, unspecified, E66.01 - Morbid (severe) obesity due to excess calories, E78.5 - Hyperlipidemia, unspecified, R73.01 - Impaired fasting glucose Lipid Panel 07/01/24 E55.9 - Vitamin D deficiency, unspecified, E66.01 - Morbid (severe) obesity due to excess calories, E78.5 - Hyperlipidemia, unspecified, R73.01 - Impaired fasting glucose Vitamin D 25-OH Total 07/01/24 E55.9 - Vitamin D deficiency, unspecified, E66.01 - Morbid (severe) obesity due to excess calories, E78.5 - Hyperlipidemia, unspecified, R73.01 - Impaired fasting glucose Hemoglobin A1c 07/01/24 E55.9 - Vitamin D deficiency, unspecified, E66.01 - Morbid (severe) obesity due to excess calories, E78.5 - Hyperlipidemia, unspecified, R73.01 - Impaired fasting glucose Medications: New cholecalciferol (vitamin D3) (Dialyvite Vitamin D3 Max) 1,250 mcg PO QWEEK 3 months 13 tabs 0RF E55.9 - Vitamin D deficiency, unspecified
[2024-03-24 08:23] VITALS: BMI 49.1
== END 2024-03-24 11:51 | disposition home or self-care (01) ==
PROVIDERS: PCP Internal Medicine; Visit Provider Internal Medicine
DX: E78.2 Mixed hyperlipidemia (principal); E66.01 Morbid (severe) obesity due to excess calories; Z68.42 Body mass index [BMI] 45.0-49.9, adult; E55.9 Vitamin D deficiency, unspecified; R73.01 Impaired fasting glucose; F41.9 Anxiety disorder, unspecified; F32.A Depression, unspecified

== ENCOUNTER → 2024-03-24 08:22 | Outpatient (BNVA) | payer OTHER, SELFPAY | PROVIDERS: PCP Internal Medicine; Visit Provider Internal Medicine ==

== ENCOUNTER 2024-04-07 08:02 | Outpatient (AMB) | payer OTHER, SELFPAY ==
--- NOTE | 2024-04-07 08:07 | A.OFFVIS_ITS ---
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 Prepared Foods Associate: Prepared Foods Associate Present (Tiffanie) Allergies No Known Allergies Allergy (Verified 04/07/24 08:13) HPI Comments Details: She is a premenopausal woman presenting for new patient annual examination. Doing well with no concerns. She attempts to eat healthy and starting to be more active with exercise. Regular monthly menses. Currently is not sexually active. She denies vaginal itching and irritation. STI screening offered; she accepts. Family history of breast and colon cancer. Last pap smear approx. 7yrs ago, negative. No records available today. Mammogram: 2023, additional appt. booked for follow up. Colonoscopy is booked July. [facility] Medical History (Updated 04/07/24 @ 08:27 by Tyesha Mishra CNM) Mixed hyperlipidemia Vitamin D deficiency Impaired fasting glucose Anxiety and depression Morbid obesity History of COVID-19 Family history of breast cancer Family history of colon cancer in mother Colon cancer screening GERD (gastroesophageal reflux disease) Surgical History No pertinent past surgical history Family History (Updated 04/07/24 @ 08:11 by Tiffanie Sheikh MA) Sister Mental health disorder Mother Colon cancer Maternal Grandfather Colon cancer Paternal Aunt Breast cancer Social History (Updated 04/07/24 @ 08:35 by Tyesha Mishra CNM) Housing: House Patient Tobacco Use Status: Former Tobacco user e-Cigarette/Vaping Use: Never Used service: No Current occupational status: employed Current occupation: [employer] Cognitive needs: No Hearing needs: No Vision needs: Yes Female Reproductive History Menstrual Duration of menses: 3-5 days Date of last menstrual period: 03/22/24 Total pregnancies: 3 Full term: 2 Ab induced: 1 Review of Systems Const All systems reviewed & are unremarkable except as noted in HPI and below Reports as per HPI Eyes Reports no additional complaints ENT Reports no additional complaints Card Reports no additional complaints Resp Reports no additional complaints GI Reports as per HPI and Reports no additional complaints Reports as per HPI Musc Reports no additional complaints Skin/Breast Reports as per HPI Neuro Reports no additional complaints Psych Reports no additional complaints Endo Reports no additional complaints Nico/Lymph Reports no additional complaints Aller/Immun Reports no additional complaints Physical Exam Vital Signs: Last Vital Signs BP 126/78 04/07/24 08:14 BMI result Body Mass Index 47.8 Const General: cooperative, healthy appearing, no acute distress, well developed and alert Orientation/consciousness: patient oriented x3 HEENT Head: Yes normal to inspection Eyes General: appearance normal, both eyes and all related structures Neck Neck: Yes normal visual inspection Thyroid: Thyroid normal Chest Chest palpation & inspection: normal inspection of the chest and other (no puckering, dimpling, peau de orange, retraction, discharge, masses) Breast/axilla inspection: normal inspection of the breasts Breast/axilla palpation: normal palpation of the breasts Resp Effort & Inspection: normal respiratory effort GI Inspection: Yes normal to inspection, Yes Abdominal panniculus present and Yes obesity Palpation (GI): Soft to palpation Rectal Exam - Female: deferred General: Yes bladder normal to palpation External Female Exam: normal external appearance and normal appearance of the urethra Speculum Exam - Vagina: normal appearance of the vagina, normal palpation and normal vaginal discharge Speculum Exam - Cervix: normal appearance of the cervix, normal palpation and Other cervical findings present (Bled slightly with Pap) Bimanual exam- vagina & uterus: normal bimanual exam, normal palpation, uterine size normal, bladder normal to palpation, normal palpation and non-tender Bimanual Exam- Adnexa, other: no masses Skin General skin exam: no rashes or lesions noted Rashes: no rashes Neuro General: patient oriented x3 Cognition (Neuro): normal cognition Extrem General: Yes normal to inspection Psych Attitude: cooperative Thought process: Normal thought process present Assessment & Plan Assessment & Plan (1) Encounter for well woman exam with routine gynecological exam: Code(s): Z01.419 - Encounter for gynecological examination (general) (routine) without abnormal findings Category: Medical Plan Discussed: Current recommendations for pap smears per ASCCP guidelines. Breast awareness and periodic breast exams. Mammogram yearly. Keep appointment for a follow up views for breast imaging Maintain a healthy lifestyle including a well balanced diet and routine exercise. See primary care for weight loss concerns if needed. Use condoms for STI and prevention. Return to the office if needs control. Monitor menstrual cycles, report any unscheduled bleeding, bleeding episodes <24 days apart or heavy/prolonged menstrual bleeding. Call the office for a follow up for any concerns. Menopause verses perimenopause. Menopause is definitive of 1 year of no menses or 12 months in succession. Report any abnormal uterine bleeding in example prolonged episodes, or short intervals less than 24 days. Colonoscopy >45, or at risk sooner. Send for Pap record. Patient verbalizes understanding and agrees to the plan of care. She was given opportunity to ask questions and all questions were answered to the best of my ability. RTO in one year for annual brass cleaner examination. This note is constructed using voice recognition software. While every effort has been made to ensure accuracy, stage electrician helper errors may have been included. Orders: Orders Hepatitis C Antibody Reflex Today Z20.2 - Contact with and (suspected) exposure to infections with a predominantly sexual mode of transmission Bacterial Vaginosis Panel Today Z20.2 - Contact with and (suspected) exposure to infections with a predominantly sexual mode of transmission CT NG by PCR Today Z20.2 - Contact with and (suspected) exposure to infections with a predominantly sexual mode of transmission Pap Smear Today Z01.419 - Encounter for gynecological examination (general) (routine) without abnormal findings HIV Ab/Ag Today Z20.2 - Contact with and (suspected) exposure to infections with a predominantly sexual mode of transmission Hepatitis B Core Antibody Today Z20.2 - Contact with and (suspected) exposure to infections with a predominantly sexual mode of transmission Syphilis Screen Today Z20.2 - Contact with and (suspected) exposure to infections with a predominantly sexual mode of transmission Coding Level of Care Code New Pt Prev Care 40-64y(33503) Diagnoses Encounter for well woman exam with routine gynecological exam Z01.419
[2024-04-07 08:14] VITALS: BP 126/78; BMI 47.8
== END 2024-04-07 08:49 | disposition home or self-care (01) ==
LOC: HO.HWS 08:03
PROVIDERS: PCP Internal Medicine; Visit Provider Advanced Practice Midwife
DX: Z01.419 Encounter for gynecological examination (general) (routine) without abnormal findings (principal)
CPT/HCPCS: 99386

== ENCOUNTER 2024-04-07 08:02 | Outpatient (REF) | payer OTHER, SELFPAY | END 2024-04-07 08:03 | disposition home or self-care (01) | LOC: HO.LAB 08:02 | PROVIDERS: PCP Internal Medicine; Visit Provider Advanced Practice Midwife | DX: Z13.89 Encounter for screening for other disorder (principal) ==

== ENCOUNTER 2024-04-07 08:42 | Outpatient (REF) | payer OTHER, SELFPAY ==
[2024-04-08 05:33] LABS: CT PCR NOT DETECTED (Not Detect.); NG PCR NOT DETECTED (Not Detect.)
[2024-04-08 08:19] LABS: Bacterial Vaginosis PCR POSITIVE (Negative); Candida Group PCR NOT DETECTED (Not Detect); Candida glab krusei PCR NOT DETECTED (Not Detect); Trichomonas vaginalis PCR NOT DETECTED (Not Detect)
[2024-04-10 10:26] LABS: HPV 16,18/45 See PAP report
== END 2024-04-07 08:43 | disposition home or self-care (01) ==
LOC: HO.LNP 08:42
PROVIDERS: Visit Provider Advanced Practice Midwife
DX: Z01.419 Encounter for gynecological examination (general) (routine) without abnormal findings (principal); Z20.2 Contact with and (suspected) exposure to infections with a predominantly sexual mode of transmission
CPT/HCPCS: 0352U; 87491; 87591; 87624; 88175

== ENCOUNTER 2024-04-25 13:54 | Outpatient (REF) | payer OTHER, SELFPAY ==
--- NOTE | ~2024-04-25 | MM_ITS ---
EXAMINATION: MM DIAGNOSTIC DIGITAL BREAST TOMOSYNTHESIS, RIGHT CLINICAL INFORMATION: Diagnostic exam, follow-up for focal asymmetry upper outer right breast, middle one third. COMPARISON: Mammography: 02/25/2024, 02/13/2023, 01/17/2022, and 03/30/2014. TECHNIQUE: Digital breast tomosynthesis is performed in the following views: 3-D spot compression right CC and right MLO views. Computer-aided diagnosis was used for this study. FINDINGS: There are scattered areas of fibroglandular density (ACR BI-RADS breast composition Category b). Additional views demonstrate no persistent suspicious asymmetry or mass in the upper outer quadrant of the right breast. Findings are consistent with summation artifact/superimposition artifact of overlapping fibroglandular tissues. There are no new suspicious findings. MM/MM tomosynthesis added views R IMPRESSION: -There are no persistent findings in the right breast suspicious for malignancy. -Recommend the patient resume routine annual screening mammography. ASSESSMENT: BI-RADS BI-RADS 1 - Negative RECOMMENDATION: 1 year F/U Results were provided to the patient at time of visit by the technologist. This patient's information was entered into a reminder system with a target due date for their next mammogram. Electronically signed by: cAe Berg MD 04/25/2024 02:37 PM ONEL PRAKASH
== END 2024-04-25 13:55 | disposition home or self-care (01) ==
LOC: HO.MAMMO 13:54
PROVIDERS: PCP Internal Medicine; Visit Provider Internal Medicine
DX: N64.89 Other specified disorders of breast (principal)
CPT/HCPCS: 77061; 77065

== ENCOUNTER → 2024-04-25 14:00 | Outpatient (BNV) | payer OTHER, SELFPAY | PROVIDERS: PCP Internal Medicine; Visit Provider Radiology Diagnostic Radiology | DX: R92.321 Mammographic fibroglandular density, right breast (principal) | CPT/HCPCS: 77061; 77065 ==

== ENCOUNTER 2025-02-21 08:50 | Outpatient (AMB) | payer OTHER, SELFPAY ==
--- NOTE | 2025-02-21 08:56 | MHC.PC.OV ---
Vital Signs 02/21/25 09:03 Height 5 ft 3 in Weight 263 lb BMI 46.6 BP 106/78 Blood Pressure Location Rt brachial Position Sitting Respiration 16 Pulse 82 Pulse Source Pulse Oximeter Temp 98.0 F Temp Source Oral Pulse Oximetry (%) 97 Oxygen Delivery Method Room Air Intake Visit Reasons: Annual visit Intake Note: Pt is here today for her PE: Last mammogram 04/25/24, papsmear 04/10/24 Allergies No Known Allergies Allergy (Verified 02/21/25 09:37) Medication List - Last Reconciled 02/21/25 by Claudia Collazo MD bisacodyl (Dulcolax (bisacodyl)) 20 mg (4 x 5 mg) PO ONCE 1 day bupropion HCl XL 150 mg PO DAILY cholecalciferol (vitamin D3) (Dialyvite Vitamin D3 Max) 1,250 mcg PO QWEEK 3 months citalopram 40 mg PO DAILY famotidine 20 mg PO BID lorazepam 0.5 mg PO DAILY PRN polyethylene glycol 3350 (Miralax) 238 grams PO ONCE 1 day Tobacco use date assessed: 02/21/25 Dental Screening Dental Screen Date: 02/21/25 Did you have a dental visit in the last 12 months?: No Did you have a dental problem in the last 6 months where you did not have access to dental care?: No Was dental information given to patient?: Patient has dentist HPI Annual visit HPI Details 50-year-old lady with history of anxiety depression, mixed hyperlipidemia, impaired fasting glucose, morbid obesity, chronic GERD, here today for her physical exam. She is up-to-date with her cervical cancer screening and breast cancer screening, done in 2023. [facility] Medical History Mixed hyperlipidemia Vitamin D deficiency Impaired fasting glucose Anxiety and depression Morbid obesity Family history of breast cancer Family history of colon cancer in mother Colon cancer screening GERD (gastroesophageal reflux disease) Surgical History No pertinent past surgical history Family History (Updated 02/21/25 @ 09:42 by Claudia Collazo MD) Sister Mental health disorder Mother Colon cancer, Onset Age: 51 Maternal Grandfather Colon cancer Paternal Aunt Breast cancer Maternal Grandfather Colon cancer Social History Housing: House Patient Tobacco Use Status: Former Tobacco user e-Cigarette/Vaping Use: Never Used service: No Current occupational status: employed Current occupation: [employer] Cognitive needs: No Hearing needs: No Vision needs: Yes Questionnaire PHQ-9 Over the last 2 weeks, how often have you been bothered by any of the following problems? 1. Little interest or pleasure in doing things: several days 2. Feeling down, depressed, or hopeless: several days 3. Trouble falling or staying asleep, or sleeping too much: several days 4. Feeling tired or having little energy: nearly every day 5. Poor appetite or overeating: more than half the days 6. Feeling bad about yourself - or that you are a failure or have let yourself or your family down: several days 7. Trouble concentrating on things, such as reading the newspaper or watching television: more than half the days 8. Moving or speaking so slowly that other people could have noticed. Or the opposite - being so fidgety or restless that you have been moving around a lot more than usual: not at all 9. Thoughts that you would be better off or of hurting yourself in some way: not at all Total score: 11 Depression Screening Interpretation: Positive (Currently followed by psychiatry) Depression Screening Follow-up: Existing condition, In treatment and Community Mental Health Worker F/U Depression Screening Done: Yes 89235 - PHQ-9 Billing: Yes Source: Developed by Drs. Reg Norman, Martha Ochoa, Krunal Huang and colleagues, with an educational elvis from [employer]. Thrive Questionnaire Date Thrive assessed: 02/14/25 I am a: Patient What is your living situation today?: I have a steady place to live Within the past 12 months, did the food you bought not last and you didn't have the money to get more?: Never true Within the past 12 months, did you worry whether your food would run out before you got money to buy more?: Never true Do you have trouble paying for medicines?: No Do you have trouble getting transportation to medical appointments?: No Do you have trouble paying your heating and electricity bill?: No Do you have trouble taking care of your child, family member or friend?: No Do you have trouble with day-to-day activities such as bathing, preparing meals, shopping, managing finances, etc.?: No Are you currently unemployed and looking for a job?: No Are you interested in more education?: No Please select the resources that you would like help with: None Currently or been in a relationship where the following occur: No concerns reported THRIVE Score: 0 AUDIT C Alcohol Use Questionnaire (AUDIT-C) 1. How often do you have a drink containing alcohol?: Monthly or less 2. How many drinks containing alcohol do you have on a typical day when you are drinking?: 1 or 2 3. How often do you have six or more drinks on one occasion?: Never Total Score: 1 Score Reviewed/Action Taken: Yes KORIN-7 AMB Questionnaire KORIN-7 Date KORIN - 7 assessed: 02/21/25 Feeling nervous, anxious, or on edge: 1 = Several days Not being able to stop or control worryin = Several days Worrying too much about different things: 1 = Several days Trouble relaxin = Several days Being so restless that it is hard to sit still: 1 = Several days Becoming easily annoyed or irritable: 1 = Several days Feeling afraid as if something awful might happen: 1 = Several days Total KORIN-7 score (0-4 normal; 5-9 mild; 10-14 moderate; 15-21 severe): 7 Source: Developed by Drs. Reg Norman, Martha Ochoa, Krunal Huang and colleagues, with an educational elvis from [employer]. KORIN-7 Assessment Billing KORIN-7 Assessment Tool: KORIN-7 Assessment 88390 Review of Systems Eyes Details: Goes to [facility] [employer] in [place], wears contact lenses Physical exam (Primary Care) Vital Signs: Last Vital Signs Temp 98.0 F 02/21/25 09:03 Pulse 82 02/21/25 09:03 Resp 16 02/21/25 09:03 BP 106/78 02/21/25 09:03 Pulse Ox 97 02/21/25 09:03 Oxygen Delivery Method Room Air 02/21/25 09:03 BMI result Body Mass Index 46.6 Tobacco/Smoking Status: Tobacco use Status Tobacco use date assessed 02/21/25 02/21/25 09:00 Patient Tobacco Use Status Former Tobacco user 02/21/25 08:56 e-Cigarette/Vaping Use Never Used 02/21/25 08:56 PHQ-9: PHQ-9 Score PHQ-9: Total score 11 02/21/25 09:32 Depression Screening Interpretation: Positive (Currently followed by psychiatry) Depression Screening Follow-up: Existing condition, In treatment and Community Mental Health Worker F/U Thrive Assessment: Date of Thrive Assessment Date Thrive assessed 02/14/25 02/21/25 08:56 Currently or been in a relationship where the following occur: No concerns reported Office Procedures Flu Questionnaire Does the patient have a severe egg allergy?: No Does the patient have severe life threatening allergies?: No Does the patient have a fever or illness today?: No Has the patient ever had Guillain-[place] Syndrome?: No Has the patient ever had any past reaction to a flu shot?: No Immunizations Fluarix [id number] (PF) 45 mcg (15 mcg x 3)/0.5 mL IM syringe Performing Provider: Claudia Collazo MD Performing Location: [facility] Administered by: Krystal Noriega CMA on 02/21/25 09:12 Dose Route Admin Location Dispensed Lot Number Expiration Date [facility] Laminating Machine Offbearer 0.5 mL IM Right Deltoid 0.5 mL [id number] 11/27/25 [id number] [id number] VIS Given Date VIS Provided VIS Publication Date 02/21/25 Single Vaccine 24 Eligibility Eligibility Date Funding Source Not [facility] Eligible 02/21/25 Private Coding Level of Care Code Est Pt Prev Care 40-64y(35543) Diagnoses GERD (gastroesophageal reflux disease) K21.9 Morbid obesity E66.01 Anxiety and depression F41.9; F32.A Impaired fasting glucose R73.01 Vitamin D deficiency E55.9 Mixed hyperlipidemia E78.2 Loud snoring R06.83 Choking episode occurring at night R09.89 Annual visit for general adult medical examination with abnormal findings Z00.01 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 [place] Code(s): F41.9 - Anxiety disorder, unspecified; F32.A - Depression, unspecified Category: Medical (4) Impaired fasting glucose: Code(s): R73.01 - Impaired fasting glucose Category: Medical (5) Vitamin D deficiency: Code(s): E55.9 - Vitamin D deficiency, unspecified Category: Medical (6) Mixed hyperlipidemia: Code(s): E78.2 - Mixed hyperlipidemia Category: Medical (7) Loud snoring: Code(s): R06.83 - Snoring (8) Choking episode occurring at night: Code(s): R09.89 - Other specified symptoms and signs involving the circulatory and respiratory systems (9) Annual visit for general adult medical examination with abnormal findings: Code(s): Z00.01 - Encounter for general adult medical examination with abnormal findings (10) 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: Code(s): G47.9 - Sleep disorder, unspecified (11) Excessive daytime sleepiness: Code(s): G47.19 - Other hypersomnia Orders: Orders Influenza [id number] Immunization Today Z23 - Encounter for immunization Lipid Panel Today E55.9 - Vitamin D deficiency, unspecified, E66.01 - Morbid (severe) obesity due to excess calories, E78.2 - Mixed hyperlipidemia, K21.9 - Gastro-esophageal reflux disease without esophagitis, R73.01 - Impaired fasting glucose Aspartate Amino Transferase Today E55.9 - Vitamin D deficiency, unspecified, E66.01 - Morbid (severe) obesity due to excess calories, E78.2 - Mixed hyperlipidemia, K21.9 - Gastro-esophageal reflux disease without esophagitis, R73.01 - Impaired fasting glucose Vitamin D 25-OH Total Today E55.9 - Vitamin D deficiency, unspecified, E66.01 - Morbid (severe) obesity due to excess calories, E78.2 - Mixed hyperlipidemia, K21.9 - Gastro-esophageal reflux disease without esophagitis, R73.01 - Impaired fasting glucose Basic Metabolic Panel Fasting Today E55.9 - Vitamin D deficiency, unspecified, E66.01 - Morbid (severe) obesity due to excess calories, E78.2 - Mixed hyperlipidemia, K21.9 - Gastro-esophageal reflux disease without esophagitis, R73.01 - Impaired fasting glucose Hemoglobin A1c Today E55.9 - Vitamin D deficiency, unspecified, E66.01 - Morbid (severe) obesity due to excess calories, E78.2 - Mixed hyperlipidemia, K21.9 - Gastro-esophageal reflux disease without esophagitis, R73.01 - Impaired fasting glucose Alanine Aminotransferase Today E55.9 - Vitamin D deficiency, unspecified, E66.01 - Morbid (severe) obesity due to excess calories, E78.2 - Mixed hyperlipidemia, K21.9 - Gastro-esophageal reflux disease without esophagitis, R73.01 - Impaired fasting glucose Referrals Sleep Medicine Referral E66.01 - Morbid (severe) obesity due to excess calories, G47.19 - Other hypersomnia, G47.9 - Sleep disorder, unspecified, R06.83 - Snoring, R09.89 - Other specified symptoms and signs involving the circulatory and respiratory systems
[2025-02-21 09:03] VITALS: BP 106/78; PULSE 82; RESP 16; TEMP 36.7; O2SAT 97; BMI 46.6
== END 2025-02-21 09:57 | disposition home or self-care (01) ==
LOC: HO.HMCC 08:51
PROVIDERS: PCP Internal Medicine; Visit Provider Internal Medicine
DX: Z23 Encounter for immunization (principal)

== ENCOUNTER → 2025-02-21 08:50 | Outpatient (BNVA) | payer OTHER, SELFPAY | PROVIDERS: PCP Internal Medicine; Visit Provider Internal Medicine | DX: Z00.01 Encounter for general adult medical examination with abnormal findings (principal); Z23 Encounter for immunization; K21.9 Gastro-esophageal reflux disease without esophagitis; E66.01 Morbid (severe) obesity due to excess calories; Z68.42 Body mass index [BMI] 45.0-49.9, adult; F41.9 Anxiety disorder, unspecified; F32.A Depression, unspecified; R73.01 Impaired fasting glucose; E55.9 Vitamin D deficiency, unspecified; E78.2 Mixed hyperlipidemia; R06.83 Snoring; R09.89 Other specified symptoms and signs involving the circulatory and respiratory systems; G47.9 Sleep disorder, unspecified; G47.19 Other hypersomnia; Z79.899 Other long term (current) drug therapy; Z80.0 Family history of malignant neoplasm of digestive organs; Z13.31 Encounter for screening for depression; Z13.39 Encounter for screening examination for other mental health and behavioral disorders | CPT/HCPCS: 90471; 90656; 96127 ==

== ENCOUNTER → 2025-02-26 09:15 | Outpatient (BNV) | payer OTHER, SELFPAY | PROVIDERS: PCP Internal Medicine; Visit Provider Internal Medicine | DX: Z12.31 Encounter for screening mammogram for malignant neoplasm of breast (principal) | CPT/HCPCS: 77063; 77067 ==

== ENCOUNTER 2025-02-26 09:16 | Outpatient (REF) | payer OTHER, SELFPAY ==
--- NOTE | ~2025-02-26 | MM_ITS ---
EXAMINATION: MM SCREENING DIGITAL BREAST TOMOSYNTHESIS, BILATERAL CLINICAL INFORMATION: Screening. Asymptomatic. COMPARISON: Mammography: Comparison is made with available priors TECHNIQUE: Digital breast mammography with tomosynthesis is performed in both the craniocaudal and mediolateral oblique views along with computer-aided detection (CAD). FINDINGS: There are scattered areas of fibroglandular density. There are no significant masses, abnormal calcifications, or other abnormalities. MM/MM tomosynthesis screening BI IMPRESSION: No mammographic evidence of malignancy. ASSESSMENT: BI-RADS Category 1: Negative RECOMMENDATION: Routine annual mammography screening. 1 year F/U This examination should not preclude the clinical evaluation of a suspicious palpable abnormality. This patient's information was entered into a reminder system with a target due date for their next mammogram. Electronically signed by: Betty Stringer DO 02/27/2025 02:17 PM EDT
== END 2025-02-26 09:17 | disposition home or self-care (01) ==
LOC: HO.MAMMO 09:16
PROVIDERS: PCP Internal Medicine; Visit Provider Internal Medicine
DX: Z12.31 Encounter for screening mammogram for malignant neoplasm of breast (principal)
CPT/HCPCS: 77063; 77067

== ENCOUNTER 2025-03-24 10:52 | Outpatient (REF) | payer OTHER, SELFPAY ==
[2025-03-24 14:31] LABS: Alanine Aminotransferase 18 U/L (0-31); Anion Gap 12 (12-20); Aspartate Amino Transferase 21 U/L (5-31); Blood Urea Nitrogen 13 mg/dL (9-16); Calcium 8.5 mg/dL (8.4-10.2); Carbon Dioxide 27 mmol/L (22-29); Chloride 107 mmol/L (96-108); Cholesterol 231 mg/dL (<200); Estimated Glomerular Filt Rate > 60; HDL Cholesterol 59 mg/dL (>40); Potassium 4.1 mmol/L (3.3-5.1); Sodium 142 mmol/L (135-145); Triglycerides 121 mg/dL (<150)
[2025-03-24 14:32] LABS: Cholesterol 230 mg/dL (<200); HDL Cholesterol 60 mg/dL (>40); Triglycerides 123 mg/dL (<150)
[2025-03-24 14:43] LABS: Syphilis Screen Nonreactive (Nonreactive)
[2025-03-24 14:48] LABS: HBc Num1 0.13 S/CO (0.00-0.79); HIV Num 1 0.05 S/CO (0.00-0.99); ~HepC Num1 0.08 S/CO (0.00-0.79); ~Hepatitis C Antibody Nonreactive (Nonreactive)
== END 2025-03-24 10:53 | disposition home or self-care (01) ==
LOC: HO.HMGCLDS 10:52
PROVIDERS: Advanced Practice Midwife; PCP Internal Medicine; Visit Provider Internal Medicine
DX: Z20.2 Contact with and (suspected) exposure to infections with a predominantly sexual mode of transmission (principal); Z11.4 Encounter for screening for human immunodeficiency virus [HIV]; Z11.59 Encounter for screening for other viral diseases; K21.9 Gastro-esophageal reflux disease without esophagitis; E66.01 Morbid (severe) obesity due to excess calories; E78.5 Hyperlipidemia, unspecified; E55.9 Vitamin D deficiency, unspecified; E78.2 Mixed hyperlipidemia; R73.01 Impaired fasting glucose
CPT/HCPCS: 36415; 80048; 80061; 82306; 82947; 83036; 84450; 84460; 86704; 86780; 86803; 87389